=== PATIENT | male | born 1955 | race Caucasian/White ===

== ENCOUNTER → 2016-12-20 | Outpatient (CLI) | payer OTHER ==
[~2016-12-20] MED LIST: ASPCH81X PO; CEPH500C2 PO; COEN1CAP PO; ENOX40IN SQ; FAMO20TA12 PO; LEVO25TA PO; LISI-791 PO; MULTCHW PO; OXYC-57 PO; SIMV20TA5 PO; VIAGRA PO; VST25HP PO; [UNRECOGNIZED DRUG - OTHER] PO
--- NOTE | 2016-12-20 13:11 | DIAGNOSTIC IMAGING REPORT ---
LUNG SCREENING, LOW DOSE CLINICAL HISTORY: LUNG NODULES LOW DOSE LUNG SCREENING COMPARISON STUDY: 12/20/2015 CT DOSE: 84.38 mGycm TECHNIQUE: Low-dose helical CT was acquired without intravenous contrast from lung apices to bases and reconstructed at 2.5 mm every 2 mm. CAD was utilized for this study. A dose lowering technique was utilized adhering to the principles of ALARA. FINDINGS: No change from the prior exam. Several small sub-6 mm nodules unchanged from the prior study. No new or interval findings. Lungs are clear. Mild emphysematous changes stable. No significant hilar or mediastinal adenopathy. Mild atherosclerotic change thoracic aorta. IMPRESSION: 1. 3 small sub-6 mm nodules stable compared to 2010 2. Mild emphysematous change. 3. No new or interval findings compared to the prior study. CAD FINDINGS: Overall Lung RADS Category: 1 Lung RADS Management Recommendation: Lung RADS Follow Up Date: 2017-12-19 Lung RADS Nodule ID: The above report was generated using voice recognition software. It may contain grammatical, syntax or spelling errors. Electronically signed by: Mu Callaway M.D. 12/20/2016 1:09 PM Dictated Date/Time: 12/20/2016 1:02 PM
== END | disposition home or self-care (01) ==
LOC: C.CTS 10:47
PROVIDERS: ATTEND Family Medicine
DX: Z12.2 Encounter for screening for malignant neoplasm of respiratory organs (principal); R91.8 Other nonspecific abnormal finding of lung field